=== PATIENT | male | born 1995 | race Caucasian/White ===

== ENCOUNTER 2017-10-02 16:32 | Emergency (ER) | payer MEDICAID, SELFPAY ==
[2017-10-02 16:33] VITALS: BP 128/93; PULSE 89; RESP 16; TEMP 36.7; O2SAT 99; BMI 19.3
--- NOTE | 2017-10-02 16:35 | RAD_ITS ---
STUDY: X-RAY - RIGHT HAND REASON FOR EXAM: Male, 21 years old. Right hand pain and swelling TECHNIQUE: 3 view(s) of the hand. COMPARISON: None. FINDINGS: Midshaft fifth metacarpal fracture without angulation or displacement. Lateral soft tissue swelling. RAD/Hand Min 3 Views IMPRESSION: As above Electronically Signed: Timbo Gonzalez DO at 17:21 EDT Tel , Service support ,
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
--- NOTE | 2017-10-02 17:29 | ED.DEP ---
ED Disposition - Plan for ED Patient: Chief Complaint: Upper Extremity Injury Instructions: ED Fx Hand Closed Referrals: David Aggarwal MD [Primary Care Provider] - Maurisio Terrell DO [STAFF PHYSICIAN] -
[2017-10-02 17:43] VITALS: BP 120/76; PULSE 89; RESP 16; O2SAT 100
== END 2017-10-02 17:44 | disposition home or self-care (01) ==
PROVIDERS: Emergency Provider Emergency Medicine
DX: S62.356A Nondisplaced fracture of shaft of fifth metacarpal bone, right hand, initial encounter for closed fracture (principal); Y04.2XXA Assault by strike against or bumped into by another person, initial encounter; Y93.89 Activity, other specified; Y92.89 Other specified places as the place of occurrence of the external cause; Y99.8 Other external cause status
CPT/HCPCS: 73130; 99282

== ENCOUNTER → 2024-08-09 | Outpatient (CLI) | payer SELFPAY ==
--- NOTE | 2024-08-09 18:37 | CT_ITS ---
PROCEDURE: CHEST WITHOUT CONTRAST 08/09/2024 REASON FOR EXAM: PECTUS EXCAVATUM TECHNIQUE: Chest CT without contrast. Coronal and Sagittal reconstruction series were provided. One or more dose reduction techniques were used (e.g., Automated exposure control, adjustment of the mA and/or kV according to patient size, use of iterative reconstruction technique RADIATION DOSE SUMMARY: CTDlvol: 8.89 mGy DLP: 337.81 mGycm COMPARISON: None FINDINGS: Lymph nodes: No lymphadenopathy. Heart and Vasculature: Heart size is normal. The visualized portions of the aorta are normal in dimensions, as are the pulmonary arteries.. Lungs and Airways: Clear Pleura: Normal. No evidence of effusion. Upper Abdomen: The visualized abdominal viscera are normal in appearance. Bones: Pectus excavatum is present. The AP chest dimension at the point of maximum sternal depression is 7.7 cm. The transfers dimension of the chest at that point is 28.7 cm. The Wanda index is 3.73 the visualized osseous structures are otherwise within normal limits. CT/Chest without Contrast IMPRESSION: Pectus excavatum with a Wanda index of 3.73. A Wanda index greater than 3.25 is considered severe and may warrant surgical correction. Reading Location: [facility]
== END | disposition home or self-care (01) ==
PROVIDERS: Referring Provider Nurse Practitioner Family; Visit Provider Nurse Practitioner Family
DX: Q67.6 Pectus excavatum (principal)
CPT/HCPCS: 71250